=== PATIENT | male | born 1995 | race Caucasian/White ===

== ENCOUNTER 2022-12-26 08:50 | Emergency (ER) | payer SELFPAY ==
[2022-12-26 08:56] VITALS: BP 171/91; PULSE 120; RESP 20; TEMP 36.8; O2SAT 100; BMI 24.4
--- NOTE | 2022-12-26 09:23 | ED_ITS ---
HPI - Psych General Chief Complaint: Psychiatric Symptoms Stated Complaint: SI Time Seen by Provider: 12/26/22 09:23 Source: patient Mode of arrival: Ambulatory History of Present Illness HPI Narrative: Patient 27-year-old male homeless presenting today with things of depression and hopelessness. He does report feelings just not wanting to be alive anymore but he has no plan of hurting himself he is never hurt himself previously. He does have a history of of opiate abuse. He has been using and taking a friend's Suboxone and he has weaned himself down. He just was not sure exactly where to go and is really heating some help and resources. Related Data Home Medications Medication Instructions Recorded Confirmed MULTIVITAMIN 1 tab PO QDAY ##0 05/23/12 Allergies Allergy/AdvReac Type Severity Reaction Status Date / Time No Known Drug Allergies Allergy Unknown Unverified 09/13/17 13:08 Review of Systems Review of Systems ROS Unobtainable: All systems reviewed & are unremarkable except as noted in HPI and below Patient History Social History Smoking Status: Current every day smoker Smoking Status: Current every day smoker tobacco type: cigarettes and vaping Substance Use Type: heroin and prescription drug Exam Initial Vital Signs Initial Vital Signs: Vital Signs Temperature 98.2 F 12/26/22 08:56 Pulse Rate 120 H 12/26/22 08:56 Respiratory Rate 20 12/26/22 08:56 Blood Pressure 171/91 H 12/26/22 08:56 Pulse Oximetry 100 12/26/22 08:56 Oxygen Delivery Method Room Air 12/26/22 08:56 GENERAL: Alert thin 27-year-old male no acute distress Good eye contact CARDIOVASCULAR: peripheral pulses in tact, cap refill <2 sec RESPIRATORY: No respiratory distress, speaks in full sentences without difficulty EXTREMITIES: Normal range of motion, no clubbing or edema. Neurovascularly intact NEUROLOGICAL: Cranial nerves II through XII grossly intact. Normal gait and speech. SKIN: Warm, dry, no petechiae, no rashes or lesions. Course Orders Ordered: ED Orders 12/26/22 09:14 [place] [facility] [place] [facility] Complete Blood Count AUTO DIFF Stat Comprehensive Metabolic Panel Stat Ethanol (ETOH) Stat 12/26/22 09:18 Urine Drug Screen, Rapid Stat Vital Signs Vital signs: Vital Signs - 8 hr 12/26/22 11:49 12/26/22 13:58 Pulse Rate 73 89 Respiratory Rate 16 Blood Pressure 156/94 H 143/77 H Pulse Oximetry 100 100 Oxygen Delivery Method Room Air Room Air MDM - Psych Lab Data Labs: Lab Results 12/26/22 Range/Units 09:18 U Opiates 300ng/mL cut Negative (Negative) Ur Oxycodone Screen Negative (Negative) Urine Methadone Screen Negative (Negative) Ur Barbiturates Screen Negative (Negative) U Tricyclic Antidepress Negative (Negative) Ur Phencyclidine Scrn Negative (Negative) Ur Amphetamines Screen Negative (Negative) U Methamphetamines Scrn Positive H (Negative) Ur MDMA Scrn (Ecstasy) Negative (Negative) U Benzodiazepines Scrn Negative (Negative) Urine Cocaine Screen Negative (Negative) U Marijuana (THC) Screen Negative (Negative) Urine Dip Bedside Urine Glucose Negative Bedside Urine Bilirubin - Negative Bedside Urine Ketone - Negative Urine Specific [place] 1.005 Bedside Urine Occult Blood - Negative Bedside Urine pH 8.5 Bedside Urine Protein - Negative Bedside Urine Urobilinogen - Negative Bedside Urine Nitrite - Negative Bedside Urine Leukocytes - Negative Esterase MDM Narrative Medical decision making narrative: Patient 27-year-old male presenting today with depression he is substance abuse but seems to be tapering himself off Suboxone pretty well. He is met with social work given multiple resources shows less schedule bus passes food stamps signed up for insurance. He does not meet any sort of involuntary criteria not actively suicidal depression. There was also help with sitting him up with PCP. Discharge Plan Departure Patient Disposition: Home Clinical Impression: Depression Instructions: Depression Activity Restrictions/Additional Instructions: *You have been diagnosed with depression *What to do: At this time please use resources given to by social work. *Continue to take medications as directed *Follow up with your primary care provider in 2-3 days or call [phone] *Return to ER if you should have increasing depression thoughts of harming self or any new, worsening or concerning symptoms Prescriptions: No Action MULTIVITAMIN 1 tab PO QDAY Qty: 0 Referrals: Kojo Hartmann MD [Primary Care Provider] - Stand Alone Forms: Patient Portal/API
[2022-12-26 09:29] LABS: UR Morphine/Opiate cutoff 300 Negative (Negative); Ur Creatinine Normal (Normal); Ur Specific Gravity Normal (Normal); Urine Barbiturates Negative (Negative); Urine Benzodiazepines Negative (Negative); Urine Cocaine Negative (Negative); Urine MDMA Negative (Negative); Urine Methadone Negative (Negative); Urine Methamphetamines Positive (Negative); Urine Oxycodone Negative (Negative); Urine Phencyclidine Negative (Negative); Urine Tetrahydrocannabinol Negative (Negative); Urine Tricyclic Antidepressant Negative (Negative); Urine pH Normal (Normal)
[2022-12-26 09:30] LABS: Urine Amphetamines Negative (Negative)
[2022-12-26 11:01] VITALS: PULSE 106; O2SAT 99
[2022-12-26 11:49] VITALS: BP 156/94; PULSE 73; RESP 16; O2SAT 100
[2022-12-26 13:58] VITALS: BP 143/77; PULSE 89; O2SAT 100
--- NOTE | 2022-12-26 14:11 | CM.SWNOTE ---
DYNAMICS [employer] TECHNICAL ARCHITECT Assessment Note Patient is 27 y/o male who presents to ED due to concern for homelessness, depression, thoughts of with no SI plans and concern for suboxone prescription. DYNAM[employer] AX TECHNICAL ARCHITECT enters room to meet with patient, patient presents as A/Ox4, calm, cooperative and communicate. Patient states I'm feeling done. When asked to elaborate patient states that he is done with his current situation as he has been experiencing homelessness in the last two months. Patient denies local supports that can help him with housing but states he does have family. Patient denies HI, patient endorses he has thoughts of SI, no plans, no intent but has thoughts of dying. Patient denies substance use, but states he has been taking Suboxone to get off of heroin. Patient is positive for Methamphetamine today. DYNAM[employer] AX TECHNICAL ARCHITECT discusses outpatient and inpatient options. Patient is open to outpatient resources. Patient states his PCP is Dr. Hartmann, and that he is open to f/u appt with PCP. DYNAM[employer] AX TECHNICAL ARCHITECT discusses resources for housing, shelters, food stamps/state benefits, insurance and [facility] outpatient resources. DYNAMICS AX TECHNICAL ARCHITECT also offers bus passes as patient endorses that he primarily gets around by foot. DYNAM[employer] AX TECHNICAL ARCHITECT calls PCP office and schedules PCP appt for patient for 01/02/23 for 1:15pm with Dr. Hartmann. DYNAMICS AX TECHNICAL ARCHITECT provides patient with resources for all matters discussed, and provides patient with 6 day passes with [employer] [facility]. Patient endorses he feels safe discharging to the community and states that he can follow through with resources. Plan: patient to d/c to community, to f/u with PCP appt and seek out resources provided. PO [place]
== END 2022-12-26 14:00 | disposition home or self-care (01) ==
PROVIDERS: Emergency Provider Emergency Medicine; Family Provider Pediatrics; PCP Pediatrics
DX: F32.A Depression, unspecified (principal)
CPT/HCPCS: 80305; 81003; 99283; 99284